=== PATIENT | female | born 1940 | race Caucasian/White ===

== ENCOUNTER 2021-01-23 11:48 | Observation (INO) | payer OTHER ==
--- OUTSIDE RECORDS SUMMARY | 2021-01-23 11:50 | XMS REPORT | Continuity of Care Document ---
:1940 Author Organization [facility] t Address [address] [place] [address] Care Team Providers Name Role Phone Unavailable Unavailable Unavailable Payers Payer Name Policy Type Policy Number Effective Date Expiration Date S ource Problems This patient has no known problems. Allergies, Adverse Reactions, Alerts Allergy Allergy Status Severity Reaction(s) Onset Inactive Treating Comm ents Source Name Type Date Date Clinician metformi DA Active MO 2018-0 [facility] [place] [facility] DA Active SV 0 [facility] [place] [facility] adhesive DA Active MO 2017-0 [facility] tape 5- [place] [facility] metformi DA Active SV 2017-0 [facility] [place] [facility] Medications This patient has no known medications. Procedures This patient has no known procedures. Results Test Description Test Time Test Comments Results Result Comments Source GLUBED 2018-12-26 11:39:00 Test Item Value Reference Range Interpretation Comme nts GLUBED (test code = GLUBED) 85 mg/dL 60-125 N [id number] 08:57:00 Test Item Value Reference Range Interpretation Comments GLUBED (test code = GLUBED) 104 mg/dL 60-125 N
[2021-01-23 13:43] LABS: Protime INR 1.03
[2021-01-23 13:47] LABS: Absolute Lymphocytes (CBC) 1.6 K/uL (0.7-4.9); Basophils % 0.7 % (0-1.3); Hematocrit 37.3 % (36.0-45.0); Lymphocytes % 21.9 % (15.3-44.8); MPV 8.5 fL (7.6-11.3); RBC Red Blood Cell Count 3.97 M/uL (3.86-4.86)
[2021-01-23 14:00] LABS: ALT/SGPT 36 U/L (12-78); AST/SGOT 30 U/L (15-37); Albumin 3.1 g/dL (3.4-5.0); Alkaline Phosphatase 159 U/L (45-117); BUN Blood Urea Nitrogen 15 mg/dL (7-18); Bicarbonate 31 mmol/L (21-32); Bilirubin Direct 0.1 mg/dL (0-0.2); Bilirubin Total 0.3 mg/dL (0.2-1.0); Glucose Level 127 mg/dL (74-106); Magnesium 2.1 mg/dL (1.8-2.4); NT PRO-BNP 1679 pg/mL (<450); Potassium 3.8 mmol/L (3.5-5.1); Protein, Total 7.1 g/dL (6.4-8.2); Sodium Level 142 mmol/L (136-145); Troponin (Emerg Dept Use Only) < 0.02 ng/mL (0.0-0.045)
--- NOTE | 2021-01-23 14:23 | RAD REPORT ---
EXAM DESCRIPTION: RAD - Chest Single View - 01/23/2021 2:10 pm CLINICAL HISTORY: PALPITATIONS COMPARISON: No comparisons FINDINGS: No evidence of edema or pneumonia. The heart size is within normal limits.No acute osseous abnormality. No significant pleural effusions or pneumothorax. Pacemaker. IMPRESSION: No acute cardiopulmonary disease.
--- NOTE | 2021-01-23 18:55 | EDPHYS ---
Physician Documentation [facility] Name: Inna Garnica Age: 80 yrs Sex: Female : 1940 Arrival Date: 01/23/2021 Time: 11:52 Bed 17 Private MD: ED Physician Henrry Varghese HPI: 01/23 18:32 This 80 yrs old Female presents to ER via Ambulatory with complaints of kdr Abnormal EKG. 18:32 Patient had been over getting a blood draw earlier today when it was noted that she had kdr a fast heart rate. She was not having any symptoms other than mild fatigue over the last few days.. Onset: The symptoms/episode began/occurred at an unknown time. Severity of symptoms: At their worst the symptoms were very mild in the emergency department the symptoms are unchanged. The patient has not experienced similar symptoms in the past. The patient has not recently seen a physician. Historical: - Allergies: 13:16 PENICILLINS; ss 13:16 metformin; ss - PMHx: 13:16 Diabetes mellitus; ss 13:17 HTN; knee replacement; ss 13:21 Cellulitis; pacemake; ss - PSHx: 13:17 Total abdominal hysterectomy; Appendectomy; Operative procedure on knee; ss - Immunization history:: Client reports having NOT received the Covid vaccine. Last tetanus immunization: unknown, Pneumococcal vaccine is not up to date, patient has never been vaccinated, Flu vaccine is not up to date. - Social history:: Smoking status: Patient reports the use of cigarette tobacco products, smokes one pack cigarettes per day. ROS: 18:32 Constitutional: Negative for fever, chills, and weight loss, Eyes: Negative for injury, kdr pain, redness, and discharge, ENT: Negative for injury, pain, and discharge, Neck: Negative for injury, pain, and swelling, Respiratory: Negative for shortness of breath, cough, wheezing, and pleuritic chest pain, Abdomen/GI: Negative for abdominal pain, nausea, vomiting, diarrhea, and constipation, Back: Negative for injury and pain, : Negative for injury, bleeding, discharge, and swelling, MS/Extremity: Negative for injury and deformity, Skin: Negative for injury, rash, and discoloration, Neuro: Negative for headache, weakness, numbness, tingling, and seizure activity. Psych: Negative for depression, anxiety, suicide ideation, homicidal ideation, and hallucinations, Allergy/Immunology: Negative for hives, rash, and allergies, Endocrine: Negative for neck swelling, polydipsia, polyuria, polyphagia, and marked weight changes, Hematologic/Lymphatic: Negative for swollen nodes, abnormal bleeding, and unusual bruising. 18:32 Cardiovascular: Positive for palpitations, Negative for chest pain, edema, orthopnea, paroxysmal nocturnal dyspnea. Exam: 18:32 Constitutional: This is a well developed, well nourished patient who is awake, alert, kdr and in no acute distress. Head/Face: Normocephalic, atraumatic. Eyes: Pupils equal round and reactive to light, extra-ocular motions intact. Lids and lashes normal. Conjunctiva and sclera are non-icteric and not injected. Cornea within normal limits. Periorbital areas with no swelling, redness, or edema. Neck: Trachea midline, no thyromegaly or masses palpated, and no cervical lymphadenopathy. Supple, full range of motion without nuchal rigidity, or vertebral point tenderness. No Meningismus. Chest/axilla: Normal chest wall appearance and motion. Nontender with no deformity. No lesions are appreciated. Respiratory: Lungs have equal breath sounds bilaterally, clear to auscultation and percussion. No rales, rhonchi or wheezes noted. No increased work of breathing, no retractions or nasal flaring. Abdomen/GI: Soft, non-tender, with normal bowel sounds. No distension or tympany. No guarding or rebound. No evidence of tenderness throughout. Back: No spinal tenderness. No costovertebral tenderness. Full range of motion. Skin: Warm, dry with normal turgor. Normal color with no rashes, no lesions, and no evidence of cellulitis. MS/ Extremity: Pulses equal, no cyanosis. Neurovascular intact. Full, normal range of motion. Neuro: Awake and alert, GCS 15, oriented to person, place, time, and situation. Cranial nerves II-XII grossly intact. Motor strength 5/5 in all extremities. Sensory grossly intact. Cerebellar exam normal. Normal gait. Psych: Awake, alert, with orientation to person, place and time. Behavior, mood, and affect are within normal limits. 18:32 ECG was reviewed by the Attending Physician. Vital Signs: 13:12 BP 149 / 96; Pulse 148; Resp 16; Temp 97.5; Pulse Ox 100% on R/A; Weight 80.74 kg; ss Height 0 ft. 1 in. (3 cm); Pain 0/10; 19:00 BP 154 / 93; Pulse 106; Resp 19; Pulse Ox 98% on R/A; Pain 0/10; ap3 20:00 BP 123 / 89; Pulse 96; Resp 24; Temp 98(O); Pulse Ox 96% on R/A; Pain 0/10; fu 21:00 BP 129 / 78; Pulse 86; Resp 24; Pulse Ox 95% on R/A; Pain 0/10; fu 13:12 Body Mass Index 45866.49 (80.74 kg, 3 cm) ss MDM: 18:32 Data reviewed: vital signs, nurses notes, lab test result(s), EKG, radiologic studies. kdr Counseling: I had a detailed discussion with the patient and/or guardian regarding: the historical points, exam findings, and any diagnostic results supporting the discharge/admit diagnosis, lab results, radiology results. 18:54 Patient medically screened. kdr 01/23 13:25 Order name: Basic Metabolic Panel; Complete Time: 18:44 kdr 01/23 13:25 Order name: CBC with Diff; Complete Time: 18:44 kdr 01/23 13:25 Order name: LFT's; Complete Time: 18:44 kdr 01/23 13:25 Order name: Magnesium; Complete Time: 18:44 kdr 01/23 13:25 Order name: NT PRO-BNP; Complete Time: 18:44 kdr 01/23 13:25 Order name: PT-INR; Complete Time: 18:44 kdr 01/23 13:25 Order name: Troponin (emerg Dept Use Only); Complete Time: 18:44 kdr 01/23 20:24 Order name: COVID-19 : Document "Date of Symptom Onset" if Symptomatic. tt3 01/23 20:46 Order name: CORONAVIRUS EDNC 01/23 21:44 Order name: SARS-COV-2 RT PCR EDMS 01/23 22:35 Order name: Glucose, Ancillary Testing EDMS 01/24 01:38 Order name: Troponin I EDMS 01/24 04:57 Order name: CBC with Automated Diff EDMS 01/24 05:01 Order name: Troponin I EDMS 01/23 13:25 Order name: XRAY Chest (1 view); Complete Time: 18:44 kdr 01/23 13:25 Order name: EKG; Complete Time: 13:25 kdr 01/23 13:25 Order name: Cardiac monitoring; Complete Time: 18:37 kdr 01/23 19:07 Order name: CONS Physician Consult EDMS 01/24 05:21 Order name: Comprehensive Metabolic Panel EDNC 01/24 05:21 Order name: Phosphorus EDMS 01/24 05:21 Order name: Lipid Profile EDNC 01/24 05:21 Order name: T4 Free EDMS 01/24 05:21 Order name: Magnesium EDNC 01/24 05:21 Order name: Thyroid Stimulating Hormone EDNC 01/24 05:40 Order name: Hemoglobin A1c EDNC 01/24 08:23 Order name: Urinalysis EDNC 01/24 10:11 Order name: Glucose, Ancillary Testing EDMS 01/24 13:16 Order name: Glucose, Ancillary Testing EDMS 01/23 13:25 Order name: EKG - Nurse/Tech; Complete Time: 18:37 kdr 01/23 13:25 Order name: IV Saline Lock; Complete Time: 18:37 kdr 01/23 13:25 Order name: Labs collected and sent; Complete Time: 18:38 kdr 01/23 13:25 Order name: O2 Per Protocol; Complete Time: 18:38 kdr 01/23 13:25 Order name: O2 Sat Monitoring; Complete Time: 18:38 kdr EC:32 Rate is 145 beats/min. Rhythm is regular, A fib with No ectopy. QRS [place] is Normal. AL kdr interval is normal. QRS interval is normal. QT interval is normal. Clinical impression: Atrial Fibrillation. Administered Medications: 18:48 Not Given (Physician Discretion): Xarelto (rivaroxaban) 10 mg PO once ap3 19:09 Drug: Lovenox (enoxaparin) 1 mg/kg Route: Sub-Q; Site: abdomen; ap3 19:48 Follow up: Response: No adverse reaction fu Disposition Summary: 01/23/21 18:54 Hospitalization Ordered Hospitalization Status: Observation kdr Provider: Westley Turner Condition: Fair kdr Problem: new kdr Symptoms: have improved kdr Bed/Room Type: Standard kdr Location: [facility] ER HOLD(01/24/21 13:39) Room Assignment: (01/24/21 13:39) Diagnosis - Unspecified atrial fibrillation - With rapid ventricular response kdr Forms: - Medication Reconciliation Form kdr - SBAR form kdr Signatures: Dispatcher [employer] Sadie Mccabe RN RN Henrry Varghese MD MD kdr Oren Herrera RN RN em Keyla George RN RN Becky Nolasco RN RN ap3 Umadhay, Felix RN Corrections: (The following items were deleted from the chart) 13:22 13:21 Home Meds: cellulitis; [facility] 22: 18:54 Telemetry/MedSurg (observation) kdr em 22: 18:54 kdr em 01/24 12:04 01/23 22:09 [facility] ER HOLD em 01/24 12:04 01/23 22:09 ERHOLD- em 01/24 13:39 12:04 Telemetry/MedSurg (observation) [facility] 13:39 12:04 232 [facility]
--- NOTE | 2021-01-23 18:55 | ER ---
Nurse's Notes [facility] Name: Inna Garnica Age: 80 yrs Sex: Female : 1940 Arrival Date: 01/23/2021 Time: 11:52 Bed 17 Private MD: Diagnosis: Unspecified atrial fibrillation-With rapid ventricular response Presentation: 01/23 13:12 Chief complaint: Patient states: Pt had outpatient EKG at [facility], was called after she got ss home and told she needs to go to an ER because she is having A-fib and rapid heart rate. Pt's biology adjunct instructor is Dr. Jarquin. Pt denies CP or palpitations, c/o minor SOB when walking. Coronavirus screen: Client denies travel out of the [place] in the last 14 days. At this time, the client does not indicate any symptoms associated with coronavirus-19. Ebola Screen: Patient negative for fever greater than or equal to 101.5 degrees Fahrenheit, and additional compatible Ebola Virus Disease symptoms Patient denies exposure to infectious person. Patient denies travel to an Ebola-affected area in the 21 days before illness onset. Initial Sepsis Screen: Does the patient meet any 2 criteria? No. Patient's initial sepsis screen is negative. Does the patient have a suspected source of infection? No. Patient's initial sepsis screen is negative. Risk Assessment: Do you want to hurt yourself or someone else? Patient reports no desire to harm self or others. Onset of symptoms is unknown. 13:12 Method Of Arrival: Ambulatory ss 13:12 Acuity: DARA 2 ss Triage Assessment: 13:17 General: Appears in no apparent distress. comfortable, Behavior is calm, cooperative. ss Pain: Denies pain. Cardiovascular: Reports shortness of breath, Denies chest pain, fatigue, lightheadedness, nausea, palpitations, syncope, Rhythm is atrial fibrillation. Respiratory: Respiratory effort is unlabored, labored, Respiratory pattern is regular, symmetrical. Derm: Skin is intact, Skin is dry, Skin is pink, warm \T\ dry. Skin temperature is warm. 13:20 General: Dr. Varghese in triage to see patient, EKG done in triage, saline lock and labs ss drawn in triage. Historical: - Allergies: 13:16 PENICILLINS; ss 13:16 metformin; ss - PMHx: 13:16 Diabetes mellitus; ss 13:17 HTN; knee replacement; ss 13:21 Cellulitis; pacemake; ss - PSHx: 13:17 Total abdominal hysterectomy; Appendectomy; Operative procedure on knee; ss - Immunization history:: Client reports having NOT received the Covid vaccine. Last tetanus immunization: unknown, Pneumococcal vaccine is not up to date, patient has never been vaccinated, Flu vaccine is not up to date. - Social history:: Smoking status: Patient reports the use of cigarette tobacco products, smokes one pack cigarettes per day. Screenin:59 Abuse screen: Denies threats or abuse. Nutritional screening: No deficits noted. ap3 Tuberculosis screening: No symptoms or risk factors identified. Fall Risk None identified. Assessment: 18:58 General: Appears in no apparent distress. comfortable, Behavior is calm, cooperative, ap3 appropriate for age. Pain: Denies pain. Neuro: Level of Consciousness is awake, alert, obeys commands, Oriented to person, place, time, situation, Appropriate for age Moves all extremities. Gait is steady, Speech is normal. Cardiovascular: Denies chest pain, shortness of breath. Respiratory: Airway is patent Respiratory effort is even, unlabored, Respiratory pattern is regular, symmetrical. GI: No signs and/or symptoms were reported involving the gastrointestinal system. : No signs and/or symptoms were reported regarding the genitourinary system. EENT: No signs and/or symptoms were reported regarding the EENT system. Derm: No signs and/or symptoms reported regarding the dermatologic system. 19:15 Reassessment: No changes from previously documented assessment. Patient and/or family fu updated on plan of care and expected duration. Pain level reassessed. Patient is alert, oriented x 3, equal unlabored respirations, skin warm/dry/pink. 20:00 Reassessment: Patient appears in no apparent distress at this time. No changes from fu previously documented assessment. Patient and/or family updated on plan of care and expected duration. Pain level reassessed. 21:00 Reassessment: Patient appears in no apparent distress at this time. No changes from fu previously documented assessment. Patient and/or family updated on plan of care and expected duration. Pain level reassessed. assisted to bedside commode, Patient voided. Vital Signs: 13:12 BP 149 / 96; Pulse 148; Resp 16; Temp 97.5; Pulse Ox 100% on R/A; Weight 80.74 kg; ss Height 0 ft. 1 in. (3 cm); Pain 0/10; 19:00 BP 154 / 93; Pulse 106; Resp 19; Pulse Ox 98% on R/A; Pain 0/10; ap3 20:00 BP 123 / 89; Pulse 96; Resp 24; Temp 98(O); Pulse Ox 96% on R/A; Pain 0/10; fu 21:00 BP 129 / 78; Pulse 86; Resp 24; Pulse Ox 95% on R/A; Pain 0/10; fu 13:12 Body Mass Index 36664.49 (80.74 kg, 3 cm) ss ED Course: 11:52 Patient arrived in ED. ds1 13:15 Triage completed. ss 13:17 Arm band placed on right wrist. EKG completed in triage. Results shown to MD. 13:18 Henrry Varghese MD is Attending Physician. kdr 14:08 XRAY Chest (1 view) In Process Unspecified. EDMS 18:53 Westley Turner MD is Hospitalizing Provider. kdr 19:00 Patient has correct armband on for positive identification. Placed in gown. Bed in low ap3 position. Call light in reach. Side rails up X 1. quality assurance monitor on. Pulse ox on. NIBP on. Door closed. Noise minimized. 19:06 EKG done, by ED staff, reviewed by Henrry Varghese MD. 3 01/24 12:08 Dustin Arias, RN is Primary Nurse. bp Administered Medications: 01/23 18:48 Not Given (Physician Discretion): Xarelto (rivaroxaban) 10 mg PO once ap3 19:09 Drug: Lovenox (enoxaparin) 1 mg/kg Route: Sub-Q; Site: abdomen; ap3 19:48 Follow up: Response: No adverse reaction fu Outcome: 18:54 Decision to Hospitalize by Provider. kdr 01/24 15:01 Patient left the ED. eb Signatures: Dispatcher [employer] EDMT Henrry Varghese MD MD [facility] Joi Prieto ds1 Keyla George RN RN Tamara Robles 3 Gabino Hay RN RN Dustin Arias RN RN Becky Nolasco RN RN ap3 Carmen Johnson Corrections: (The following items were deleted from the chart) 01/23 13:22 13:21 Home Meds: cellulitis; ss ss
[2021-01-23] MEDS ORDERED: ENOXAPARIN 80 MG/0.8 ML SQ ONE (19:28)
[2021-01-23] MEDS ORDERED: METOPROLOL TAR 25 MG TAB ONE ×2 (19:28→22:49)
--- NOTE | 2021-01-23 20:01 | P.HP ---
Certification for Inpatient Patient admitted to: Observation With expected LOS: <2 Midnights Patient will require the following post-hospital care: None Practitioner: I am a practitioner with admitting privileges, knowledge of patient current condition, hospital course, and medical plan of care. Services: Services provided to patient in accordance with Admission requirements found in Title 42 Section 412.3 of the Code of Federal Regulations Patient History Date of Service: 01/23/21 Primary Care Provider: [place] Reason for admission: new onset afib History of Present Illness: Ms. Garnica is an 80 yo F with HTN, hypothyroidism, HLD who was sent over from [facility] for abnormal EKG demonstrating afib with RVR. She says that on her home monitor she has been tachycardic since 01/14. She denies all symptoms. Has never been diagnosed with afib before. Her buff wheel fabricator is Dr. Tovar. She has had a pacemaker since 2012. She smokes 1 ppd. GFR 42, Glu 127, BNP 1679. CXR wnl. Allergies Penicillins Allergy (Verified 12/10/16 09:24) Hives metformin Adverse Reaction (Verified 12/10/16 09:24) diarrhea Home Medications: Cholecalciferol (Vitamin D3) [Vitamin D3] 2,000 unit PO DAILY 12/10/16 Duloxetine HCl [Cymbalta] 60 mg PO DAILY 12/10/16 Ferrous Fumarate/Vit Bcomp&C [Super B-Complex Caplet] 1 each PO DAILY 12/10/16 Folic Acid 0.8 mg PO DAILY 12/10/16 Furosemide [Lasix*] 40 mg PO DAILY 12/10/16 Insulin Glargine,Hum.rec.anlog [Lantus Solostar] 0 unit SQ BEDTIME 12/10/16 Levothyroxine [Synthroid*] 50 mcg PO [id number] 12/10/16 Liraglutide [Victoza 2-Kartik] 1.8 mg SQ DAILY AFTER SUPPER 12/10/16 Magnesium Oxide [Mag 0X*] 400 mg PO DAILY 12/10/16 Potassium Gluconate [Potassium] 600 mg PO DAILY 12/10/16 lisinopriL [Prinivil*] 20 mg PO DAILY 12/10/16 - Past Medical/Surgical History -: HTN -: HLD -: pacemaker -: knee replacement -: hysterectomy -: appendectomy -: back surgery - Family History Sister -: Cancer Brother -: Diabetes - Social History Smoking Status: Heavy Tobacco smoker (>10 cigarettes/day) Smoking therapy provided: Yes Patient receptive to therapy: No Alcohol use: No CD- Drugs: No Caffeine use: Yes Place of Residence: Home Review of Systems 10-point ROS is otherwise unremarkable Physical Examination - Physical Exam General: Alert, In no apparent distress HEENT: Atraumatic, PERRLA, Mucous membr. moist/pink, EOMI, Sclerae nonicteric Neck: Supple, 2+ carotid pulse no bruit, No LAD, Without JVD or thyroid abnormality Respiratory: Clear to auscultation bilaterally, Normal air movement Cardiovascular: No edema, No gallops, No rubs, No murmurs, Irregular heart rate/rhythm Gastrointestinal: Normal bowel sounds, No tenderness Musculoskeletal: No tenderness Integumentary: No rashes Neurological: Normal speech, Normal strength at 5/5 x4 extr, Normal tone, Normal affect Lymphatics: No axilla or inguinal lymphadenopathy - Studies Laboratory Data (last 24 hrs) 01/23/21 13:28: PT 11.9, INR 1.03 01/23/21 13:28: WBC 7.50, Hgb 12.6, Hct 37.3, Plt Count 193 01/23/21 13:28: Sodium 142, Potassium 3.8, BUN 15, Creatinine 1.23, Glucose 127 H, Magnesium 2.1, Total Bilirubin 0.3, AST 30, ALT 36, Alkaline Phosphatase 159 H Assessment and Plan - Problems (Diagnosis) (1) Afib Current Visit: Yes Status: Acute Qualifiers: Atrial fibrillation type: unspecified Qualified Code(s): I48.91 - Unspecified atrial fibrillation (2) HTN (hypertension) Current Visit: Yes Status: Chronic Qualifiers: Hypertension type: primary hypertension Qualified Code(s): I10 - Essential (primary) hypertension (3) HLD (hyperlipidemia) Current Visit: Yes Status: Chronic Qualifiers: Hyperlipidemia type: unspecified Qualified Code(s): E78.5 - Hyperlipidemia, unspecified (4) Hypothyroid Current Visit: Yes Status: Chronic Qualifiers: Hypothyroidism type: unspecified Qualified Code(s): E03.9 - Hypothyroidism, unspecified - Plan cardiology consulted, on tele, repeat EKG in the AM, trend troponins PO metoprolol BID, IV metoprolol PRN for HR >120 ECHO pending full dose lovenox given in the ED, continue Xarelto daily thyroid panel pending, lipid panel pending reconcile and continue home medications Discharge Plan: Home Plan to discharge in: 24 Hours - Advance Directives Does patient have a Living Will: No Does patient have a Durable POA for Healthcare: No - Code Status/Comfort Care Code Status Assessed: Yes (full code ) Critical Care: No Time Spent Managing Pts Care (In Minutes): 70
[2021-01-23] MEDS ORDERED: METOPROLOL TARTRATE 5 MG/5 ML INJ IV PRN (21:48)
[2021-01-23] MEDS ORDERED: ATORVASTATIN 10 MG TAB PO SCH (21:48)
[2021-01-23] MEDS ORDERED: ACETAMINOPHEN 500 MG TAB PO PRN (21:48)
[2021-01-23] MEDS ORDERED: HYDRALAZINE HCL 20 MG/ML VIAL IV PRN (21:48)
[2021-01-23] MEDS ORDERED: ONDANSETRON 4 MG/2 ML VIAL IV PRN (21:48)
[2021-01-23] MEDS: INSULIN -REGULAR HUMAN 50 UNIT/0.5 ML ML SQ SCH (22:24)
[2021-01-23] MEDS: METOPROLOL TAR 25 MG TAB PO SCH (22:35)
[2021-01-23] MEDS ORDERED: ATORVASTATIN 10 MG TAB ONE (22:51)
[2021-01-23] MEDS: GABAPENTIN 100 MG CAP PO SCH (23:32)
[2021-01-23 23:38] VITALS: BMI 31.5
[2021-01-24 04:43] LABS: Basophils % 0.6 % (0-1.3); Hematocrit 38.6 % (36.0-45.0); Lymphocytes % 29.2 % (15.3-44.8); RBC Red Blood Cell Count 4.12 M/uL (3.86-4.86)
[2021-01-24] MEDS: METOPROLOL TAR 25 MG TAB PO SCH (05:17)
[2021-01-24 05:21] LABS: Albumin 3.2 g/dL (3.4-5.0); Bilirubin Total 0.3 mg/dL (0.2-1.0); Magnesium 2.4 mg/dL (1.8-2.4); Phosphorus 3.2 mg/dL (2.5-4.9); Potassium 4.6 mmol/L (3.5-5.1); Protein, Total 7.2 g/dL (6.4-8.2); Thyroid Stimulating Hormone 2.34 uIU/mL (0.360-3.740)
[2021-01-24] MEDS ORDERED: METOPROLOL TAR 25 MG TAB ONE (05:38)
[2021-01-24] MEDS ORDERED: TIZANIDINE 4 MG TABLET PO PRN (06:22)
[2021-01-24] MEDS: INSULIN -REGULAR HUMAN 50 UNIT/0.5 ML ML SQ SCH ×2 (07:30→11:30)
[2021-01-24 08:01] LABS: Urine Appearance CLEAR (Clear); Urine Bilirubin NEGATIVE (Negative); Urine Blood NEGATIVE (Negative); Urine Color YELLOW (Yellow); Urine Glucose NEGATIVE (Negative); Urine Protein TRACE (Negative); Urine Urobilinogen 0.2 mg/dL (0.2-1.0); Urine pH 7.5 (5.0-7.0)
[2021-01-24 08:23] LABS: Urine Microscopic Reflex NO UMIC
[2021-01-24] MEDS ORDERED: FOLIC ACID 1 MG TABLET PO SCH (09:00)
[2021-01-24] MEDS ORDERED: PRAMIPEXOLE 1 MG TAB PO SCH ×2 (09:00→21:00)
[2021-01-24] MEDS ORDERED: HYDROXYCHLOROQUINE 200MG TAB PO SCH (09:00)
[2021-01-24] MEDS ORDERED: ASPIRIN EC 81 MG TAB PO SCH (09:00)
[2021-01-24] MEDS: GABAPENTIN 100 MG CAP PO SCH ×2 (09:00→14:00)
[2021-01-24] MEDS ORDERED: MAGNESIUM OXIDE 400 MG TAB PO SCH (09:00)
[2021-01-24] MEDS ORDERED: FUROSEMIDE 40 MG TABLET PO SCH ×2 (09:00→21:00)
[2021-01-24] MEDS ORDERED: DULOXETINE 30 MG CAP PO SCH (09:00)
[2021-01-24] MEDS ORDERED: lisinopriL 20 MG TAB PO SCH (09:00)
--- NOTE | 2021-01-24 09:29 | P.DS ---
Admission Date: 01/23/21 Discharge Date: 01/24/21 Primary Care Provider: Lencho Rose NP; Cardiology-Dr. Jarquin Disposition: ROUTINE DISCHARGE Discharge Condition: GOOD Reason for Admission: new onset afib Consultations: CardiologyDr. Dixon Procedures: COVID: Negative Medical problem list: New onset atrial fibrillation with RVR Hypertension Hyperlipidemia Hypothyroidism Diabetes mellitus type 2 insulin-dependent Restless leg syndrome History of pacemaker Tobacco abuse Chronic pain with diabetic neuropathy Chronic diastolic CHF Brief History of Present Illness: 80-year-old female with history of hypertension, hypothyroidism, hyperlipidemia, pacemaker, tobacco abuse presented with abnormal EKG showing A. fib with RVR. Patient reports tachycardia since 8 4. She denies any significant abnormalities. Patient reports no history of atrial fibrillation. Patient was treated in the ER with IV metoprolol with improvement. Patient was admitted for further evaluation. Hospital Course: Patient presented with new onset atrial fibrillation with RVR. Patient was treated in with IV metoprolol. Patient responded well to medication. Patient currently stable on metoprolol oral. Patient also placed on Xarelto due to new diagnosis. Patient seen and evaluated by cardiology. At discharge patient without significant chest pain, shortness of breath. Cardiac enzymes unremarkable. At discharge patient will continue with metoprolol 25 mg 1 pill twice daily and Xarelto 20 mg daily for atrial fibrillation. Recommend follow- up with cardiology in 1 to 2 weeks to follow his hospitalization and continue her care. Education on atrial fibrillation, metoprolol and Xarelto will be provided. Patient with hypertension. Patient remained stable on medication-Lisinopril. New medication includes metoprolol. At discharge patient will continue with her medications including lisinopril 20 mg daily and metoprolol 25 mg one pill twice daily. Recommend to maintain blood pressure less than 130/80. Hold Lisinopril if BP less than 110 sys. Further adjustment can be done by her PCP. Patient with hyperlipidemia. LDL within normal range. At discharge patient will continue with pravastatin 80 mg daily. Patient with diabetes mellitus type 2 insulin-dependent. Hemoglobin A1c 6.3. Overall stable. At discharge she will continue with her current medications including Tresiba 22 units subcu daily and Victoza as directed. Recommend to maintain blood sugar less than 140 fasting and less than 200 meals. Recommend to recheck hemoglobin A1c every 3 to 6 months to monitor progress. Recommend follow-up with PCP to further address. Patient with restless leg syndrome. At discharge patient will continue with Mirapex 0.5 mg daily and 1 mg at bedtime. Patient with hypothyroidism. TSH and free T4 within normal range. At discharge she will continue with levothyroxine 75 mcg daily. Patient with tobacco abuse. Tobacco cessation addressed in detail. Patient also takes Lasix 40 mg daily and 20 mg at night. This is likely for underlying congestive heart failure. Patient will continue with a 1500 cc/day fluid restriction and low-salt diet. Patient also takes potassium supplementation. At discharge recommend to recheck labBMP in 1 week to monitor her progress. Patient with chronic pain and neuropathy. At discharge she will continue with Cymbalta 60 mg daily and gabapentin 100 mg 3 times a day. Patient takes muscle relaxer as needed. Vital Signs/Physical Exam: Temp Pulse Resp BP Pulse Ox 98.3 F 90 24 H 142/87 H 92 01/24/21 04:00 01/24/21 05:17 01/24/21 04:00 01/24/21 05:17 01/24/21 04:00 General: Alert, In no apparent distress, Oriented x3, Cooperative HEENT: Atraumatic Neck: Supple Respiratory: Clear to auscultation bilaterally Cardiovascular: Irregular heart rate/rhythm (Atrial fibrillation, rate controlled) Gastrointestinal: Normal bowel sounds, No tenderness, No masses, No rebound, No guarding Musculoskeletal: No erythema, No tenderness, No warmth Integumentary: No tenderness/swelling Neurological: Normal speech, Normal strength at 5/5 x4 extr, Normal tone, Normal affect Laboratory Data at Discharge: WBC 6.90 K/uL (4.3-10.9) 01/24/21 03:57 Hgb 12.8 g/dL (12.0-15.0) 01/24/21 03:57 Hct 38.6 % (36.0-45.0) 01/24/21 03:57 Plt Count 180 K/uL (152-406) 01/24/21 03:57 PT 11.9 SECONDS (9.5-12.5) 01/23/21 13:28 INR 1.03 01/23/21 13:28 Sodium 141 mmol/L (136-145) 01/24/21 03:57 Potassium 4.6 mmol/L (3.5-5.1) 01/24/21 03:57 BUN 13 mg/dL (7-18) 01/24/21 03:57 Creatinine 0.91 mg/dL (0.55-1.3) 01/24/21 03:57 Glucose 71 mg/dL (74-106) L 01/24/21 03:57 Phosphorus 3.2 mg/dL (2.5-4.9) 01/24/21 03:57 Magnesium 2.4 mg/dL (1.8-2.4) 01/24/21 03:57 Total Bilirubin 0.3 mg/dL (0.2-1.0) 01/24/21 03:57 AST 28 U/L (15-37) 01/24/21 03:57 ALT 34 U/L (12-78) 01/24/21 03:57 Alkaline Phosphatase 157 U/L (45-117) H 01/24/21 03:57 Troponin I < 0.02 ng/mL (0.0-0.045) 01/24/21 03:57 Triglycerides 122 mg/dL (<150) 01/24/21 03:57 Cholesterol 151 mg/dL (<200) 01/24/21 03:57 HDL Cholesterol 85 mg/dL (40-60) H 01/24/21 03:57 Cholesterol/HDL Ratio 1.78 01/24/21 03:57 Home Medications: Cholecalciferol (Vitamin D3) [Vitamin D3] 2,000 unit PO SEECOM 12/10/16 Duloxetine HCl [Cymbalta] 60 mg PO DAILY 12/10/16 Folic Acid 0.8 mg PO DAILY 12/10/16 Furosemide [Lasix*] 40 mg PO DAILY 12/10/16 Levothyroxine [Synthroid*] 75 mcg PO [id number] 12/10/16 Liraglutide [Victoza 2-Kartik] 1.8 mg SQ DAILY 12/10/16 Magnesium Oxide [Mag 0X*] 250 mg PO DAILY 12/10/16 Potassium Gluconate [Potassium] 595 mg PO DAILY 12/10/16 lisinopriL [Prinivil*] 20 mg PO DAILY 12/10/16 Cyclosporine [Restasis] 1 drop EACH EYE BID 01/23/21 Furosemide [Lasix*] 20 mg PO SEECOM 01/23/21 Gabapentin 100 mg PO TID 01/23/21 Hydroxychloroquine [Plaquenil*] 2 tab PO DAILY 01/23/21 Insulin Degludec [Tresiba] 22 unit SQ DAILY 01/23/21 Pramipexole [Mirapex*] 0.5 mg PO DAILY 01/23/21 Pramipexole [Mirapex*] 1 mg PO BEDTIME 01/23/21 Pravastatin Sodium 80 mg PO BEDTIME 01/23/21 Tizanidine HCl 2 mg PO BID 01/23/21 Vit C/Yunier AC/Lut/Copper/Znox [Preservision Lutein Softgel] 1 each PO BID 01/23/21 Metoprolol Tartrate [Lopressor*] 25 mg PO BID 6AM 6PM #60 tab 01/24/21 Rivaroxaban [Xarelto] 20 mg PO DAILY #30 tablet 01/24/21 New Medications: Metoprolol Tartrate [Lopressor*] 25 mg PO BID 6AM 6PM #60 tab Rivaroxaban [Xarelto] 20 mg PO DAILY #30 tablet Physician Discharge Instructions: Patient presented with new onset atrial fibrillation with RVR. Patient was treated in with IV metoprolol. Patient responded well to medication. Patient currently stable on metoprolol oral. Patient also placed on Xarelto due to new diagnosis. Patient seen and evaluated by cardiology. At discharge patient without significant chest pain, shortness of breath. Cardiac enzymes unremarkable. At discharge patient will continue with metoprolol 25 mg 1 pill twice daily and Xarelto 20 mg daily for atrial fibrillation. Recommend follow- up with cardiology in 1 to 2 weeks to follow his hospitalization and continue her care. Education on atrial fibrillation, metoprolol and Xarelto will be provided. Patient with hypertension. Patient remained stable on medication-Lisinopril. New medication includes metoprolol. At discharge patient will continue with her medications including lisinopril 20 mg daily and metoprolol 25 mg one pill twice daily. Recommend to maintain blood pressure less than 130/80. Hold Lisinopril if BP less than 110 sys. Further adjustment can be done by her PCP. Patient with hyperlipidemia. LDL within normal range. At discharge patient will continue with pravastatin 80 mg daily. Patient with diabetes mellitus type 2 insulin-dependent. Hemoglobin A1c 6.3. Overall stable. At discharge she will continue with her current medications including Tresiba 22 units subcu daily and Victoza as directed. Recommend to maintain blood sugar less than 140 fasting and less than 200 meals. Recommend to recheck hemoglobin A1c every 3 to 6 months to monitor progress. Recommend follow-up with PCP to further address. Patient with restless leg syndrome. At discharge patient will continue with Mirapex 0.5 mg daily and 1 mg at bedtime. Patient with hypothyroidism. TSH and free T4 within normal range. At discharge she will continue with levothyroxine 75 mcg daily. Patient with tobacco abuse. Tobacco cessation addressed in detail. Patient also takes Lasix 40 mg daily and 20 mg at night. This is likely for underlying congestive heart failure. Patient will continue with a 1500 cc/day fluid restriction and low-salt diet. Patient also takes potassium supplementation. At discharge recommend to recheck labBMP in 1 week to monitor her progress. Patient with chronic pain and neuropathy. At discharge she will continue with Cymbalta 60 mg daily and gabapentin 100 mg 3 times a day. Patient takes muscle relaxer as needed. Diet: ADA Activity: Ad peggy Followup: TSERING CAGLE [Primary Care Provider] - Time spent managing pt's care (in minutes): 55
[2021-01-24] MEDS ORDERED: FUROSEMIDE 40 MG TABLET ONE (11:27)
[2021-01-24] MEDS ORDERED: FOLIC ACID 1 MG TABLET ONE (11:27)
[2021-01-24] MEDS ORDERED: MAGNESIUM OXIDE 400 MG TAB ONE (11:28)
[2021-01-24] MEDS ORDERED: lisinopriL 20 MG TAB ONE (11:28)
[2021-01-24] MEDS ORDERED: ASPIRIN EC 81 MG TAB PO ONE (11:28)
[2021-01-24 11:41] VITALS: O2SAT 96
--- NOTE | 2021-01-24 14:45 | CON ---
Date of Consultation: 01/24/2021 Reason For Consultation: New-onset atrial fibrillation. History Of Present Illness: An 80-year-old female, history of hypertension, hypothyroidism, dyslipid emia, presented after a primary care physician referred her to come to the hospital because of fast h eartbeat. She did not have any symptoms. No chest pain or shortness of breath. Arrived into the em ergency room with atrial fibrillation with RVR. Heart rate in the 150s. This was slowed down with I V metoprolol and she is below 100 now and no symptoms. She denies having any cardiac history except pacemaker implantation for symptomatic bradycardia in the past. Past Medical History: As outlined above in the HPI. Medications: Refer to reconciliation sheet for detailed list. Allergies: PENICILLIN AND METFORMIN. Family History: No premature coronary artery disease or cancer. Social History: She smokes about 10 cigarettes per day. Does not drink or use any drugs. Review of Systems: All systems reviewed and negative except as mentioned in HPI. Physical Examination: Vital Signs: Temperature is 98.3, pulse is 90-95, breathing at 18, blood pressure is 142/87, saturat ing 96% on room air. General: Pleasant elderly female, in no apparent distress. Head and Neck: Pupils are equal and reactive to light. Intact eye movements. No JVD. No cervical lymphadenopathy. Neck: Supple. Thyroid is not enlarged. Lungs: Clear to auscultation bilaterally. No rhonchi, rales, or crackles. No accessory muscle use. Heart: Irregularly irregular. No extra sounds. Abdomen: Soft, nontender. Bowel sounds positive. No organomegaly. No masses or hernia. No rigidi ty or rebound. Extremities: No clubbing, cyanosis. Intact pulses. Skin: No rash. Neurologic: Alert, awake, oriented x3. No acute focal deficits appreciated. Investigations: Troponins x2 are negative. TSH is 2.3. Creatinine 0.9. Hemoglobin is 12.8, platel et count is 180. Assessment And Recommendations: New-onset atrial fibrillation with rapid ventricular response. No o ther symptoms. No shortness of breath. No hypoxia. No signs of heart failure. No chest pain. Hea rt rate is controlled now. Recommend to continue metoprolol and anticoagulation with Xarelto. The p atient has significant skin bruising all over her body that she has always had. She will probably be nefit from left atrial appendage closure in the near future to replace anticoagulants. From cardiolo gy standpoint, the patient is clinically stable. Thank you for the consult. /MARILYN Voice ID: [id number] Report ID: [id number]
[2021-01-24 15:15] VITALS: BP 129/93; TEMP 98.6
[2021-01-24] MEDS ORDERED: FUROSEMIDE 20 MG TABLET PO SCH (17:00)
[2021-01-24] MEDS ORDERED: RIVAROXABAN 10 MG TABLET PO SCH ×2 (17:00)
[2021-01-25] MEDS ORDERED: LEVOTHYROXINE SOD 0.075 MG TAB PO SCH (06:00)
[2021-01-26] MEDS ORDERED: VITAMIN D 1000 UNIT TAB PO SCH (09:00)
== END 2021-01-24 14:30 | disposition home or self-care (01) ==
LOC: ER 11:48 → ERHOLD 19:20
PROVIDERS: ADMIT Family Medicine; ATTEND Family Medicine
DX: I48.91 Unspecified atrial fibrillation (principal); I11.0 Hypertensive heart disease with heart failure; I50.32 Chronic diastolic (congestive) heart failure; E78.5 Hyperlipidemia, unspecified; E03.9 Hypothyroidism, unspecified; E11.40 Type 2 diabetes mellitus with diabetic neuropathy, unspecified; G89.29 Other chronic pain; G25.81 Restless legs syndrome; F17.210 Nicotine dependence, cigarettes, uncomplicated; Z71.6 Tobacco abuse counseling; Z20.822 Contact with and (suspected) exposure to COVID-19; Z95.0 Presence of cardiac pacemaker; Z79.4 Long term (current) use of insulin; Z88.0 Allergy status to penicillin; Z88.8 Allergy status to other drugs, medicaments and biological substances; Z90.710 Acquired absence of both cervix and uterus; Z96.659 Presence of unspecified artificial knee joint; Z83.3 Family history of diabetes mellitus; Z80.9 Family history of malignant neoplasm, unspecified
CPT/HCPCS: 93005 ×5; 85025 ×2; 80048; 36415; 83735 ×2; 84100; 85610; 80061; 82947 ×3; 80076; 84443; 81003; 83036; 84484 ×3; 84439; 80053; 83880; 71045; 94760; 96372; 99284; U0003; G0378 ×3

== ENCOUNTER 2021-02-20 10:09 | Observation (INO) | payer OTHER ==
--- OUTSIDE RECORDS SUMMARY | 2021-02-20 10:12 | XMS REPORT | Continuity of Care Document ---
:1940 Author Organization [facility] t Address [address] [place] [address] Care Team Providers Name Role Phone Unavailable Unavailable Unavailable Payers Payer Name Policy Type Policy Number Effective Date Expiration Date S ource Problems This patient has no known problems. Allergies, Adverse Reactions, Alerts Allergy Allergy Status Severity Reaction(s) Onset Inactive Treating Comm ents Source Name Type Date Date Clinician metformi DA Active MO 0 [facility] [place] [facility] DA Active SV 0 [facility] [place] [facility] adhesive DA Active MO 2017-0 [facility] [place] [facility] metformi DA Active SV 2017-0 [facility] [place] [facility] Medications This patient has no known medications. Procedures This patient has no known procedures. Results Test Description Test Time Test Comments Results Result Comments Source GLUBED 2018-12-26 11:39:00 Test Item Value Reference Range Interpretation Comme nts GLUBED (test code = GLUBED) 85 mg/dL 60-125 N [id number] 08:57:00 Test Item Value Reference Range Interpretation Comments GLUBED (test code = GLUBED) 104 mg/dL 60-125 N
[2021-02-20 11:16] LABS: Protime INR 1.46
[2021-02-20 11:17] LABS: Absolute Lymphocytes (CBC) 1.6 K/uL (0.7-4.9); Basophils % 0.9 % (0-1.3); Hematocrit 35.2 % (36.0-45.0); Lymphocytes % 20.9 % (15.3-44.8); RBC Red Blood Cell Count 3.82 M/uL (3.86-4.86)
[2021-02-20 11:19] LABS: ALT/SGPT 58 U/L (12-78); AST/SGOT 42 U/L (15-37); Alkaline Phosphatase 211 U/L (45-117); BUN Blood Urea Nitrogen 16 mg/dL (7-18); Bicarbonate 33 mmol/L (21-32); Bilirubin Direct 0.2 mg/dL (0-0.2); Bilirubin Total 0.5 mg/dL (0.2-1.0); Glucose Level 72 mg/dL (74-106); NT PRO-BNP 2609 pg/mL (<450); Potassium 3.5 mmol/L (3.5-5.1); Protein, Total 6.8 g/dL (6.4-8.2); Sodium Level 143 mmol/L (136-145); Troponin (Emerg Dept Use Only) < 0.02 ng/mL (0.0-0.045)
--- NOTE | 2021-02-20 12:26 | ER ---
Nurse's Notes [facility] Name: Inna Garnica Age: 80 yrs Sex: Female : 1940 Arrival Date: 02/20/2021 Time: 10:20 Bed 18 Private MD: Diagnosis: Pleural effusion, not elsewhere classified;Unspecified combined systolic (congestive) and diastolic (congestive) heart failure;Dyspnea, unspecified Presentation: 02/20 10:22 Chief complaint: Patient states: went to see Jordana Rose on Tuesday , had labs iw drawn and CXR. this morning she was told to come to ER for possible CHF, pt normally takes Lasix , was admitted here last month for new onset A fib , pt denies any chest pain or SOB or palpitations, states she has SOB on exertion sine last week. Coronavirus screen: Client presents with at least one sign or symptom that may indicate coronavirus-19. Ebola Screen: Patient negative for fever greater than or equal to 101.5 degrees Fahrenheit, and additional compatible Ebola Virus Disease symptoms Patient denies exposure to infectious person. Patient denies travel to an Ebola-affected area in the 21 days before illness onset. No symptoms or risks identified at this time. Initial Sepsis Screen: Does the patient meet any 2 criteria? No. Patient's initial sepsis screen is negative. Does the patient have a suspected source of infection? No. Patient's initial sepsis screen is negative. Risk Assessment: Do you want to hurt yourself or someone else? Patient reports no desire to harm self or others. Onset of symptoms was February 13, 2021. 10:22 Method Of Arrival: Wheelchair iw 10:22 Acuity: DARA 3 iw Historical: - Allergies: 10:25 PENICILLINS; iw 10:25 metformin; iw - Home Meds: 10:25 vitamin B complex oral daily [Active]; duloxetine 60 mg oral cpDR 1 cap once daily iw [Active]; folic acid 800 mcg Oral tab 1 tab once daily [Active]; gabapentin 300 mg oral cap 1 cap 3 times per day [Active]; hydroxychloroquine 200 mg oral tab 2 tabs once daily [Active]; levothyroxine 75 mcg cap 1 cap once daily [Active]; lisinopril 20 mg Oral tab 1 tab once daily [Active]; magnesium oxide 250 mg magnesium Oral tab daily [Active]; Novolog Sub-Q [Active]; pramipexole 0.75 mg oral tab nightly [Active]; pravastatin 80 mg oral tab 1 tab once daily [Active]; tizanidine 2 mg oral cap 1 cap twice a day [Active]; Tresiba FlexTouch U-200 200 unit/mL (3 mL) subcutaneous inpn [Active]; Victoza 3-Kartik 0.6 mg/0.1 mL (18 mg/3 mL) subcutaneous pnij once daily [Active]; Xarelto 20 mg oral tab 1 tab once daily [Active]; metoprolol tartrate 25 mg Oral tab 1 tab 2 times per day [Active]; - PMHx: 10:25 Cellulitis; diabetes mellitus; HTN; knee replacement; iw - PSHx: 10:25 Appendectomy; Operative procedure on knee; Total abdominal hysterectomy; pacemaker; iw - Immunization history:: Client reports having NOT received the Covid vaccine. - Social history:: Smoking status: Patient reports the use of cigarette tobacco products, smokes one pack cigarettes per day. Screenin:34 Abuse screen: Denies threats or abuse. Nutritional screening: No deficits noted. ll1 Tuberculosis screening: No symptoms or risk factors identified. Vital Signs: 10:22 BP 133 / 84; Pulse 86; Resp 18; Temp 98.1; Pulse Ox 96% on R/A; Weight 85.73 kg; iw 21:23 BP 142 / 90; Pulse 105; Resp 20; Pulse Ox 96% ; em ED Course: 10:20 Patient arrived in ED. ds1 10:25 Triage completed. iw 10:30 Arm band placed on. iw 11:32 Blas Madera PA is PHCP. cp 11:32 Henrry Varghese MD is Attending Physician. cp 11:34 Yonas Chavira, DAMEON is Primary Nurse. ll1 11:34 Patient placed in an exam room, on a stretcher. ll1 12:25 Nishant Booth is Hospitalizing Provider. cp Administered Medications: 15:24 Not Given (Patient Refused): UltRAM (traMADol) 25 mg PO once; RASS on ADMIN: Combtv4, ll1 Very Agttd3, Agttd2, Rstlss1, AlertClm0, Drwsy-1, Lt Sdtn-2, Mod Sdtn-3, Dp Sdtn-4, UnArsble-5 15:55 Drug: Gabapentin 100 mg Route: PO; ll1 15:55 Drug: Mirapex (pramipexole) 2 mg Route: PO; ll1 Outcome: 12:26 Decision to Hospitalize by Provider. cp 22:40 Admitted to Tele accompanied by nurse, via wheelchair, room 216, with chart, Report em called to receiving nurse 22:40 Condition: stable 22:40 Instructed on the need for admit. 22:42 Patient left the ED. em Signatures: Oren Herrera RN RN em Joi Prieto ds1 Jenae Fuchs RN RN iw Blas Madera PA PA cp Yonas Chavira RN RN ll1 Corrections: (The following items were deleted from the chart) 10:30 10:25 PMHx: pacemake; iw iw
--- NOTE | 2021-02-20 12:27 | EDPHYS ---
Physician Documentation [facility] Name: Inna Garnica Age: 80 yrs Sex: Female : 1940 Arrival Date: 02/20/2021 Time: 10:20 Bed 18 Private MD: ED Physician Henrry Varghese HPI: 02/20 10:35 This 80 yrs old Female presents to ER via Wheelchair with complaints of cp Irregular Pulse, Sent Per Jordana ORTIZ. 10:35 The patient has shortness of breath with light activity. cp 10:35 Onset: The symptoms/episode began/occurred last week. Duration: The symptoms are cp continuous, and are steadily getting worse. Associated signs and symptoms: Pertinent positives: edema, Pertinent negatives: chest pain, productive cough, fever. 10:35 Severity of symptoms: in the emergency department the symptoms are unchanged despite cp home interventions. Patient sent to ED by family physician for increasing exertional shortness of breath and swelling of legs since last week. Historical: - Allergies: 10:25 PENICILLINS; iw 10:25 metformin; iw - Home Meds: 10:25 vitamin B complex oral daily [Active]; duloxetine 60 mg oral cpDR 1 cap once daily iw [Active]; folic acid 800 mcg Oral tab 1 tab once daily [Active]; gabapentin 300 mg oral cap 1 cap 3 times per day [Active]; hydroxychloroquine 200 mg oral tab 2 tabs once daily [Active]; levothyroxine 75 mcg cap 1 cap once daily [Active]; lisinopril 20 mg Oral tab 1 tab once daily [Active]; magnesium oxide 250 mg magnesium Oral tab daily [Active]; Novolog Sub-Q [Active]; pramipexole 0.75 mg oral tab nightly [Active]; pravastatin 80 mg oral tab 1 tab once daily [Active]; tizanidine 2 mg oral cap 1 cap twice a day [Active]; Tresiba FlexTouch U-200 200 unit/mL (3 mL) subcutaneous inpn [Active]; Victoza 3-Kartik 0.6 mg/0.1 mL (18 mg/3 mL) subcutaneous pnij once daily [Active]; Xarelto 20 mg oral tab 1 tab once daily [Active]; metoprolol tartrate 25 mg Oral tab 1 tab 2 times per day [Active]; - PMHx: 10:25 Cellulitis; diabetes mellitus; HTN; knee replacement; iw - PSHx: 10:25 Appendectomy; Operative procedure on knee; Total abdominal hysterectomy; pacemaker; iw - Immunization history:: Client reports having NOT received the Covid vaccine. - Social history:: Smoking status: Patient reports the use of cigarette tobacco products, smokes one pack cigarettes per day. ROS: 10:40 Constitutional: Negative for body aches, chills, fever, poor PO intake. cp 10:40 Eyes: Negative for injury, pain, redness, and discharge. cp 10:40 ENT: Negative for ear pain, sore throat, difficulty swallowing, difficulty handling secretions. 10:40 Cardiovascular: Positive for edema, Negative for chest pain, palpitations. 10:40 Respiratory: Positive for shortness of breath, on exertion. Negative for cough, wheezing. 10:40 Abdomen/GI: Negative for abdominal pain, nausea, vomiting, and diarrhea, black/tarry stool, rectal bleeding. 10:40 Skin: Negative for rash. 10:40 Neuro: Negative for altered mental status, headache, syncope, weakness. 10:40 All other systems are negative. Exam: 10:45 Constitutional: The patient appears in no acute distress, alert, awake, cp non-diaphoretic, non-toxic, well developed, well nourished. 10:45 Head/Face: Normocephalic, atraumatic. cp 10:45 Eyes: Periorbital structures: appear normal, Conjunctiva: normal, no exudate, no injection, Sclera: no appreciated abnormality, Lids and lashes: appear normal, bilaterally. 10:45 ENT: External ear(s): are unremarkable, Nose: is normal, Posterior pharynx: Airway: no evidence of obstruction, patent. 10:45 Neck: ROM/movement: is normal, is supple, without pain, no range of motions limitations. 10:45 Chest/axilla: Inspection: normal, Palpation: is normal, no crepitus, no tenderness. 10:45 Cardiovascular: Rate: normal, Rhythm: irregular, Edema: ankle edema, that is moderate, JVD: is not appreciated. 10:45 Respiratory: the patient does not display signs of respiratory distress, Respirations: normal, no use of accessory muscles, no retractions, labored breathing, is not present, Breath sounds: decreased breath sounds, that are mild, diffuse, stridor, is not appreciated, wheezing: is not appreciated. 10:45 Abdomen/GI: Inspection: abdomen appears normal, Palpation: abdomen is soft and non-tender, in all quadrants. 10:45 Back: pain, is absent, ROM is normal. 10:45 Neuro: Orientation: to person, place \\T\\ time. Mentation: is normal. 11:05 ECG was reviewed by the Attending Physician. cp Vital Signs: 10:22 BP 133 / 84; Pulse 86; Resp 18; Temp 98.1; Pulse Ox 96% on R/A; Weight 85.73 kg; iw 21:23 BP 142 / 90; Pulse 105; Resp 20; Pulse Ox 96% ; em MDM: 11:00 Differential diagnosis: CHF exacerbation, Chronic Obstructive Pulmonary Disease cp pneumonia, Pneumothorax pulmonary edema, Pulmonary Embolism Unstable Angina. 11:43 Patient medically screened. cp 12:30 Data reviewed: vital signs, nurses notes, lab test result(s), EKG, radiologic studies, cp plain films. 12:30 Test interpretation: by ED physician or midlevel provider: ECG, plain radiologic cp studies. Counseling: I had a detailed discussion with the patient and/or guardian regarding: the historical points, exam findings, and any diagnostic results supporting the discharge/admit diagnosis, lab results, radiology results, the need for further work-up and treatment in the hospital. Physician consultation: Arben OCHOA was contacted at 12:25, regarding admission, to the telemetry unit. patient's condition. 02/20 10:30 Order name: Basic Metabolic Panel; Complete Time: 11:32 02/20 11:44 Interpretation: Normal except: CL 108; CO2 33; GLUC 72; GFR 66. cp 02/20 10:30 Order name: CBC with Diff; Complete Time: 11:44 02/20 11:44 Interpretation: Normal except: RBC 3.82; HGB 11.4; HCT 35.2. cp 02/20 10:30 Order name: LFT's; Complete Time: 11:32 02/20 11:55 Interpretation: Normal except: AST 42; ALK 211; ALB 3.0; GLOB 3.8; A/G 0.8. cp 02/20 10:30 Order name: Magnesium; Complete Time: 11:32 iw 02/20 10:30 Order name: NT PRO-BNP; Complete Time: 11:32 02/20 11:44 Interpretation: Abnormal: NT PRO-BNP 2609. 02/20 10:30 Order name: PT-INR; Complete Time: 11:54 02/20 11:55 Interpretation: Abnormal: PT 16.8. 02/20 10:30 Order name: Troponin (emerg Dept Use Only); Complete Time: 11:32 02/20 12:22 Order name: COVID-19 : Document "Date of Symptom Onset" if Symptomatic. 02/20 16:30 Order name: SARS-COV-2 RT PCR [facility] 02/20 19:08 Order name: Troponin I [facility] 02/20 19:13 Order name: T4 Free [facility] 02/20 19:13 Order name: Thyroid Stimulating Hormone [facility] 02/20 22:34 Order name: Troponin I [facility] 02/20 10:30 Order name: EKG; Complete Time: 10:31 02/20 10:30 Order name: Cardiac monitoring; Complete Time: 11:34 02/20 10:30 Order name: EKG - Nurse/Tech; Complete Time: 11:34 02/20 10:30 Order name: IV Saline Lock; Complete Time: 11:34 02/20 10:30 Order name: Labs collected and sent; Complete Time: 11:34 02/20 10:30 Order name: O2 Per Protocol; Complete Time: 11:34 02/20 10:30 Order name: O2 Sat Monitoring; Complete Time: 11:34 02/20 13:42 Order name: Echo with Doppler EDMS EC:05 Rate is 86 beats/min. Rhythm is regular. QRS interval is normal. QT interval is normal. cp Interpreted by me. Reviewed by me. Administered Medications: 15:24 Not Given (Patient Refused): UltRAM (traMADol) 25 mg PO once; RASS on ADMIN: Combtv4, ll1 Very Agttd3, Agttd2, Rstlss1, AlertClm0, Drwsy-1, Lt Sdtn-2, Mod Sdtn-3, Dp Sdtn-4, UnArsble-5 15:55 Drug: Gabapentin 100 mg Route: PO; ll1 15:55 Drug: Mirapex (pramipexole) 2 mg Route: PO; ll1 Disposition: 02/21 20:18 Co-signature as Attending Physician, Henrry Varghese MD I agree with the assessment and kdr plan of care. Disposition Summary: 02/20/21 12:26 Hospitalization Ordered Hospitalization Status: Inpatient Admission cp Provider: Nishant Booth cp Condition: Stable cp Problem: new cp Symptoms: are unchanged cp Bed/Room Type: Standard cp Location: Telemetry/MedSurg (Inpatient)(02/20/21 20:57) Room Assignment: 216(02/20/21 20:57) Diagnosis - Pleural effusion, not elsewhere classified cp - Unspecified combined systolic (congestive) and diastolic (congestive) heart failure cp - Dyspnea, unspecified cp Forms: - Medication Reconciliation Form cp - SBAR form cp Signatures: Dispatcher [employer] EDMS Sahra Vu RN RN mw Rittger, Kevin, MD MD [facility] Jenae Fuchs RN RN Blas Madera PA PA cp Botello, Elizabeth eb Lewis, Lynsay RN RN ll1 Corrections: (The following items were deleted from the chart) 02/20 10:30 10:25 PMHx: pacemake; iw iw 10:39 10:31 Chest Single View+RAD.RAD.BRZ ordered. EDMS EDMS 13:42 12:26 Telemetry/MedSurg (Inpatient) cp eb 13:42 12:26 cp eb 20:57 13:42 [facility] ER HOLD eb mw 20:57 13:42 ERHOLD- eb
[2021-02-20] MEDS ORDERED: TRAMADOL HCL 50 MG TAB ONE (15:45)
[2021-02-20] MEDS ORDERED: GABAPENTIN 100 MG CAP PO ONE (16:00)
[2021-02-20] MEDS ORDERED: PRAMIPEXOLE 1 MG TAB PO ONE (16:00)
[2021-02-20] MEDS ORDERED: RIVAROXABAN 20 MG TABLET PO SCH (17:00)
[2021-02-20] MEDS ORDERED: METOPROLOL TAR 25 MG TAB PO SCH (18:00)
[2021-02-20 18:05] VITALS: BMI 33.5
[2021-02-20] MEDS ORDERED: ACETAMINOPHEN 500 MG TAB PO PRN (18:10)
[2021-02-20] MEDS ORDERED: ALBUTEROL 2.5 MG/3 ML NEB SOL NEB PRN (18:10)
[2021-02-20] MEDS ORDERED: ONDANSETRON 4 MG/2 ML VIAL IV PRN (18:10)
[2021-02-20] MEDS ORDERED: IPRATROPIUM BROM 0.5MG/2.5ML NEB PRN (18:10)
[2021-02-20] MEDS: FUROSEMIDE 40 MG/4 ML VIAL IV SCH ×2 (18:10→18:35)
--- NOTE | 2021-02-20 18:36 | P.HP ---
Certification for Inpatient Patient admitted to: Observation With expected LOS: <2 Midnights Patient will require the following post-hospital care: None Practitioner: I am a practitioner with admitting privileges, knowledge of patient current condition, hospital course, and medical plan of care. Services: Services provided to patient in accordance with Admission requirements found in Title 42 Section 412.3 of the Code of Federal Regulations Patient History Date of Service: 02/20/21 Reason for admission: Congestive heart failure, edema History of Present Illness: This is a 80-year-old female patient that presented to the emergency room for increased dyspnea x1 week with increased edema. Patient has a history of diabetes, thyroid dysfunction, rheumatoid arthritis, atrial fibrillation, pedal edema and is on Lasix. PCP had recently increased her Lasix but now having shortness of breath with any sort of exertion. Patient was worked up in the e mergency room and found to have bilateral pleural effusions on chest x-ray with increased BNP of 2609. Troponin was negative. Other labs notable for sodium of 143, potassium 3.5, chloride 108, bicarb 33, BUN 16, creatinine 0.83, glucose 72. Patient's white cell count was 7.4, hemoglobin 11.4, hematocrit 35.2, platelet 229. Patient denies any recent change in her medications. Otherwise hemodynamically stable in the emergency room. Medicine consult at that time for admission for new onset suspected congestive heart failure with increased edema. Allergies Penicillins Allergy (Verified 01/23/21 22:36) Hives metformin Adverse Reaction (Verified 01/23/21 22:36) diarrhea Home medications list reviewed: Yes Home Medications: Cholecalciferol (Vitamin D3) [Vitamin D3] 2,000 unit PO SEECOM 12/10/16 Duloxetine HCl [Cymbalta] 60 mg PO DAILY 12/10/16 Folic Acid 0.8 mg PO DAILY 12/10/16 Furosemide [Lasix*] 40 mg PO DAILY 12/10/16 Levothyroxine [Synthroid*] 75 mcg PO [id number] 12/10/16 Liraglutide [Victoza 2-Kartik] 1.8 mg SQ DAILY 12/10/16 Magnesium Oxide [Mag 0X*] 250 mg PO DAILY 12/10/16 Potassium Gluconate [Potassium] 595 mg PO DAILY 12/10/16 lisinopriL [Prinivil*] 20 mg PO DAILY 12/10/16 Cyclosporine [Restasis] 1 drop EACH EYE BID 01/23/21 Furosemide [Lasix*] 20 mg PO SEECOM 01/23/21 Gabapentin 100 mg PO TID 01/23/21 Hydroxychloroquine [Plaquenil*] 2 tab PO DAILY 01/23/21 Insulin Degludec [Tresiba] 22 unit SQ DAILY 01/23/21 Pramipexole [Mirapex*] 0.5 mg PO DAILY 01/23/21 Pramipexole [Mirapex*] 1 mg PO BEDTIME 01/23/21 Pravastatin Sodium 80 mg PO BEDTIME 01/23/21 Tizanidine HCl 2 mg PO BID 01/23/21 Vit C/Yunier AC/Lut/Copper/Znox [Preservision Lutein Softgel] 1 each PO BID 01/23/21 Metoprolol Tartrate [Lopressor*] 25 mg PO BID 6AM 6PM #60 tab 01/24/21 Rivaroxaban [Xarelto] 20 mg PO DAILY #30 tablet 01/24/21 - Past Medical/Surgical History Has patient received pneumonia vaccine in the past: No Diabetic: Yes -: HTN -: HLD -: DM- IDDM -: Cellulitis -: pacemaker -: knee replacement -: hysterectomy -: appendectomy -: back surgery - Family History Sister -: Cancer Brother -: Diabetes - Social History Smoking Status: Current every day smoker Smoking therapy provided: Yes Patient receptive to therapy: Yes Alcohol use: No CD- Drugs: No Caffeine use: Yes Place of Residence: Home Review of Systems General: Unremarkable Eyes: Unremarkable ENT: Unremarkable Respiratory: SOB with Excertion Cardiovascular: Edema Gastrointestinal: Unremarkable Genitourinary: Unremarkable Musculoskeletal: Unremarkable Integumentary: Unremarkable Neurological: Unremarkable Lymphatics: Unremarkable Physical Examination - Vital Signs Temperature: 98.1 F Blood Pressure: 122/60 Pulse: 90 Respirations: 18 Pulse Ox (%): 97 - Physical Exam General: Alert, In no apparent distress, Oriented x3, Cooperative HEENT: PERRLA, Mucous membr. moist/pink, EOMI Neck: Supple, 2+ carotid pulse no bruit, JVD not distended Respiratory: Clear to auscultation bilaterally Cardiovascular: No gallops, No rubs, No murmurs, Edema, Irregular heart rate/rhythm Capillary refill: <2 Seconds Gastrointestinal: Normal bowel sounds, Soft and benign, Non-distended, No ascites, No tenderness, No masses, No rebound, No guarding Musculoskeletal: No clubbing, No contractures, No tenderness, No warmth, Erythema (Mild erythema bronzing noted to the lower extremities) Integumentary: No rashes, No breakdown, No significant lesion, No tenderness/swelling, No erythema, No warmth, No cyanosis Neurological: Normal speech, Normal strength at 5/5 x4 extr, Normal tone, Sensation intact, Cranial nerves 3-12 intact, Normal affect Lymphatics: No axilla or inguinal lymphadenopathy - Studies Laboratory Data (last 24 hrs) 02/20/21 10:48: PT 16.8 H, INR 1.46 02/20/21 10:48: WBC 7.40, Hgb 11.4 L, Hct 35.2 L, Plt Count 229 02/20/21 10:48: Sodium 143, Potassium 3.5, BUN 16, Creatinine 0.83, Glucose 72 L, Magnesium 2.0, Total Bilirubin 0.5, AST 42 H, ALT 58, Alkaline Phosphatase 211 H Assessment and Plan - Problems (Diagnosis) (1) Congestive heart disease Current Visit: Yes Status: Acute Qualifiers: Heart failure 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 Qualified Code(s): I50.814 - Right heart failure due to left heart failure (2) Dyspnea on exertion Current Visit: Yes Status: Acute (3) Afib Current Visit: Yes Status: Chronic Qualifiers: Atrial fibrillation type: unspecified Qualified Code(s): I48.91 - Unspecified atrial fibrillation (4) HTN (hypertension) Current Visit: Yes Status: Chronic Qualifiers: Hypertension type: primary hypertension Qualified Code(s): I10 - Essential (primary) hypertension (5) Hypothyroid Current Visit: No Status: Chronic Qualifiers: 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 Patient will be admitted to observation unit for suspected new onset congestive heart failure with edema 2. We will start patient on furosemide 40 twice daily to diuresis. 3. Will be completed and cardiology has been consulted 4. We will control A. fib and keep patient on Xarelto 5. Labs daily 6. Patient should be able to go home in the next 24 hours post diuresis and cardiology consult Discharge Plan: Home Plan to discharge in: 24 Hours - Advance Directives Does patient have a Living Will: No Does patient have a Durable POA for Healthcare: No - Code Status/Comfort Care Code Status Assessed: No Critical Care: No Time Spent Managing Pts Care (In Minutes): 70
[2021-02-20] MEDS ORDERED: FUROSEMIDE 40 MG/4 ML VIAL ONE (18:53)
[2021-02-20 19:13] LABS: Thyroid Stimulating Hormone 2.3 uIU/mL (0.360-3.740)
[2021-02-20 23:36] VITALS: O2SAT 96
[2021-02-21 05:24] LABS: Absolute Lymphocytes (CBC) 1.8 K/uL (0.7-4.9); Basophils % 0.9 % (0-1.3); Hematocrit 34.7 % (36.0-45.0); Lymphocytes % 24.3 % (15.3-44.8); MPV 7.8 fL (7.6-11.3); RBC Red Blood Cell Count 3.75 M/uL (3.86-4.86)
[2021-02-21 05:43] LABS: Potassium 3.5 mmol/L (3.5-5.1)
[2021-02-21] MEDS: FUROSEMIDE 40 MG/4 ML VIAL IV SCH (09:41)
[2021-02-21] MEDS ORDERED: HOME MED 1 EA UNK (Duloxetine Hcl [Cymbalta] 60 MG Capsule.Dr) PO SCH (10:09)
[2021-02-21] MEDS ORDERED: HOME MED 1 EA UNK (Cholecalciferol (Vitamin D3) [Vitamin D3] 2,000 UNIT Capsule) PO SCH (10:15)
[2021-02-21] MEDS ORDERED: METOPROLOL TAR 25 MG TAB PO SCH (11:00)
[2021-02-21] MEDS ORDERED: HYDROXYCHLOROQUINE 200MG TAB PO SCH (11:00)
[2021-02-21] MEDS ORDERED: MAGNESIUM OXIDE 400 MG TAB PO SCH (11:00)
[2021-02-21] MEDS ORDERED: lisinopriL 20 MG TAB PO SCH (11:00)
[2021-02-21] MEDS ORDERED: PRAMIPEXOLE 0.25 MG TAB PO SCH (11:00)
[2021-02-21] MEDS ORDERED: TIZANIDINE 4 MG TABLET PO SCH (12:00)
[2021-02-21] MEDS ORDERED: DULOXETINE 30 MG CAP PO SCH (12:00)
[2021-02-21] MEDS ORDERED: FOLIC ACID 1 MG TABLET PO SCH (12:00)
--- NOTE | 2021-02-21 13:13 | P.DS ---
Admission Date: 02/20/21 Discharge Date: 02/21/21 Disposition: ROUTINE DISCHARGE Discharge Condition: FAIR Reason for Admission: Congestive heart failure, edema - Problems (1) Acute on chronic diastolic (congestive) heart failure Status: Acute (2) Afib Status: Chronic Qualifiers: Atrial fibrillation type: unspecified Qualified Code(s): I48.91 - Unspecified atrial fibrillation (3) HTN (hypertension) Status: Chronic Qualifiers: Hypertension type: primary hypertension Qualified Code(s): I10 - Essential (primary) hypertension Brief History of Present Illness: 80-year-old female patient presented to the emergency room for increased dyspnea x1 week with increased edema. Patient has a history of diabetes, thyroid dysfunction, rheumatoid arthritis, atrial fibrillation, pedal edema and is on Lasix. PCP had recently increased her Lasix. In the ED, chest x-ray demonstrated small bilateral pleural effusions and increased interstitial opacities suggesting vascular congestion. BNP of 2609. Troponin was negative. Other labs notable for sodium of 143, potassium 3.5, chloride 108, bicarb 33, BUN 16, creatinine 0.83, glucose 72. Patient hospitalized for further management. Hospital Course: Patient placed under observation. Troponin trended negative. She was diuresed with IV Lasix. Her shortness of breath improved with treatment. Patient states she feels back to baseline. She ambulated without shortness of breath. Vital stable. Patient deemed clinically stable for discharge. Will continue her Lasix dose 40 mg daily. Follow up with her [facility] manager Dr. Jarquin within the next couple of weeks is recommended. Vital Signs/Physical Exam: Temp Pulse Resp BP Pulse Ox 98.0 F 110 H 17 127/67 97 02/21/21 08:00 02/21/21 08:00 02/21/21 08:00 02/21/21 11:21 02/21/21 08:00 General: Alert, In no apparent distress, Oriented x3 HEENT: Mucous membr. moist/pink Neck: Supple, JVD not distended Respiratory: Clear to auscultation bilaterally, Normal air movement Cardiovascular: No edema, Regular rate/rhythm, Normal S1 S2 Gastrointestinal: Soft and benign, Non-distended, No tenderness Musculoskeletal: No swelling Integumentary: No rashes Neurological: Normal strength at 5/5 x4 extr Laboratory Data at Discharge: WBC 7.30 K/uL (4.3-10.9) 02/21/21 04:48 Hgb 11.1 g/dL (12.0-15.0) L 02/21/21 04:48 Hct 34.7 % (36.0-45.0) L 02/21/21 04:48 Plt Count 221 K/uL (152-406) 02/21/21 04:48 PT 16.8 SECONDS (9.5-12.5) H 02/20/21 10:48 INR 1.46 02/20/21 10:48 Sodium 145 mmol/L (136-145) 02/21/21 04:48 Potassium 3.5 mmol/L (3.5-5.1) 02/21/21 04:48 BUN 16 mg/dL (7-18) 02/21/21 04:48 Creatinine 0.80 mg/dL (0.55-1.3) 02/21/21 04:48 Glucose 86 mg/dL (74-106) 02/21/21 04:48 Magnesium 2.0 mg/dL (1.8-2.4) 02/20/21 10:48 Total Bilirubin 0.5 mg/dL (0.2-1.0) 02/20/21 10:48 AST 42 U/L (15-37) H 02/20/21 10:48 ALT 58 U/L (12-78) 02/20/21 10:48 Alkaline Phosphatase 211 U/L (45-117) H 02/20/21 10:48 Troponin I < 0.02 ng/mL (0.0-0.045) 02/20/21 21:58 Home Medications: Cholecalciferol (Vitamin D3) [Vitamin D3] 2,000 unit PO SEECOM 12/10/16 Duloxetine HCl [Cymbalta] 60 mg PO DAILY 12/10/16 Folic Acid 0.8 mg PO DAILY 12/10/16 Furosemide [Lasix*] 40 mg PO DAILY 12/10/16 Levothyroxine [Synthroid*] 75 mcg PO [id number] 12/10/16 Liraglutide [Victoza 2-Kartik] 1.8 mg SQ DAILY 12/10/16 Magnesium Oxide [Mag 0X*] 250 mg PO DAILY 12/10/16 Potassium Gluconate [Potassium] 595 mg PO DAILY 12/10/16 lisinopriL [Prinivil*] 20 mg PO DAILY 12/10/16 Cyclosporine [Restasis] 1 drop EACH EYE BID 01/23/21 Gabapentin 100 mg PO TID 01/23/21 Hydroxychloroquine [Plaquenil*] 2 tab PO DAILY 01/23/21 Insulin Degludec [Tresiba] 22 unit SQ DAILY 01/23/21 Pramipexole [Mirapex*] 0.5 mg PO DAILY 01/23/21 Pramipexole [Mirapex*] 1 mg PO BEDTIME 01/23/21 Pravastatin Sodium 80 mg PO BEDTIME 01/23/21 Tizanidine HCl 2 mg PO BID 01/23/21 Vit C/Yunier AC/Lut/Copper/Znox [Preservision Lutein Softgel] 1 each PO BID 01/23/21 Metoprolol Tartrate [Lopressor*] 25 mg PO BID 6AM 6PM #60 tab 01/24/21 Rivaroxaban [Xarelto] 20 mg PO DAILY #30 tablet 01/24/21 Diet: ADA Activity: Ad peggy Followup: Espinoza Mcgee MD [ACTIVE - CAN ADMIT] - TSERING CAGLE [Primary Care Provider] -
[2021-02-21] MEDS ORDERED: GABAPENTIN 100 MG CAP PO SCH (14:00)
[2021-02-21 14:07] VITALS: BP 135/70; TEMP 98.1
--- NOTE | 2021-02-21 15:16 | CON ---
Date of Consultation: 02/21/2021 Reason For Consultation: Heart failure. History Of Present Illness: An 80-year-old female presented with lower extremity edema with only shreya rtness of breath. Denies having any chest pain. No nausea or vomiting. No diarrhea. Diagnosed wit h acute heart failure exacerbation, started on Lasix and feels much better. Past Medical History: Hypertension, diabetes, congestive heart failure, and dyslipidemia. Medications: Refer to reconciliation sheet for detailed list. Allergies: PENICILLIN AND METFORMIN. Past Surgical History: Hysterectomy, appendectomy, and back surgery. Family History: No premature coronary artery disease or cancer. Social History: Does not use any drugs, but smokes every day and does not drink alcohol. Review of Systems: All systems reviewed and are negative except as mentioned in HPI. Physical Examination: Vital Signs: Temperature is 98.1, pulse is 117, breathing 18, blood pressure 135/70, and saturating 98%. General: Pleasant elderly female, in no apparent distress. Head and Neck: Pupils are equal and reactive to light. Intact eye movements. No JVD. No cervical lymphadenopathy. Neck is supple. Thyroid is not enlarged. Lungs: Clear to auscultation bilaterally. No rhonchi, rales, or crackles. No accessory muscle use. Heart: Regular rate and rhythm. No extra sounds. Abdomen: Soft, nontender. Bowel sounds positive. No organomegaly. No rigidity or rebound. Extremities: A 3+ pitting edema. No clubbing or cyanosis. Intact pulses. Skin: No rashes. Neurologic: Alert, awake, and oriented x3. No acute focal deficits appreciated. Investigations: Troponin less than 0.02. NT-proBNP was 2182. Creatinine 0.8. Assessment And Recommendations: [id number] congestive heart failure exacerbation. EF is borde rline. I recommend further IV diuresis. The patient is still fluid overloaded. Carefully monitor B UN and creatinine, and she would definitely benefit from further IV diuresis prior to discharge and t he patient will need ischemic workup with stress test, which can be arranged for as an outpatient sin ce her troponins are negative. Thank you for the consult. SR/MODL Voice ID: [id number] Report ID: [id number]
[2021-02-21] MEDS ORDERED: RIVAROXABAN 20 MG TABLET PO SCH (17:00)
[2021-02-21] MEDS ORDERED: [UNRECOGNIZED DRUG - OTHER] PO SCH (21:00)
[2021-02-21] MEDS ORDERED: COPPER PO SCH (21:00)
[2021-02-21] MEDS ORDERED: HOME MED 1 EA UNK (Pravastatin Sodium [Pravastatin Sodium] 80 MG Tablet) PO SCH (21:00)
[2021-02-21] MEDS ORDERED: HOME MED 1 EA UNK (Cyclosporine [Restasis] Droperette) OPTH SCH (21:00)
[2021-02-21] MEDS ORDERED: LUT PO SCH (21:00)
[2021-02-21] MEDS ORDERED: VIT C PO SCH (21:00)
[2021-02-21] MEDS ORDERED: ZNOX PO SCH (21:00)
[2021-02-21] MEDS ORDERED: PRAMIPEXOLE 1 MG TAB PO SCH (21:00)
[2021-02-21] MEDS ORDERED: VITE AC PO SCH (21:00)
[2021-02-21] MEDS ORDERED: HOME MED 1 EA UNK (Tizanidine Hcl [Tizanidine Hcl] 2 MG Tablet) PO SCH (21:00)
[2021-02-21] MEDS ORDERED: ATORVASTATIN 10 MG TAB PO SCH (21:00)
[2021-02-22] MEDS ORDERED: LEVOTHYROXINE SOD 0.075 MG TAB PO SCH (06:00)
[2021-02-22] MEDS ORDERED: HOME MED 1 EA UNK (Insulin Degludec [Tresiba] 100 UNIT/ML Vial) SQ SCH (09:00)
[2021-02-22] MEDS ORDERED: HOME MED 1 EA UNK (Folic Acid [Folic Acid] 0.8 MG Capsule) PO SCH (09:00)
[2021-02-22] MEDS ORDERED: HOME MED 1 EA UNK (Potassium Gluconate [Potassium] 600 MG Tablet) PO SCH (09:00)
--- NOTE | 2021-02-23 07:59 | ECHO ---
HEIGHT: 5 ft 3 in WEIGHT: 189 lb 0 oz DATE OF STUDY: 02/20/[address]: Mac Cleaning 2-DIMENSIONAL: YES M.MODE: YES DOPPLER: YES COLOR FLOW: YES TDS: PORTABLE: DEFINITY: BUBBLE STUDY: DIAGNOSIS: NEW ONSET HEART FAILURE CARDIAC HISTORY: CATHERIZATION: NO SURGERY: NO PROSTHETIC VALVE: NO PACEMAKER: YES MEASUREMENTS (cm) DIASTOLIC (NORMALS) SYSTOLIC (NORMALS) IVSd 1.1 (0.6-1.2) LA Diam 2.8 (1.9-4.0) LVEF 45-50% LVIDd 3.6 (3.5-5.7) LVIDs 2.9 (2.0-3.5) %FS 17% LVPWd 1.1 (0.6-1.2) Ao Diam 2.8 (2.0-3.7) 2 DIMENSIONAL ASSESSMENT: RIGHT ATRIUM: ENLARGED LEFT ATRIUM: NORMAL RIGHT VENTRICLE: PACEMAKER LEAD LEFT VENTRICLE: MILDLY DEPRESSED TRICUSPID VALVE: MODERATE TRICUSPID REGURGITATION MITRAL VALVE: MILD MITRAL REGURGITATION PULMONIC VALVE: AORTIC VALVE: NORMAL PERICARDIAL EFFUSION: AORTIC ROOT: NORMAL LEFT VENTRICULAR WALL MOTION: MILD GLOBAL HYPOKINESIS DOPPLER/COLOR FLOW: SEE BELOW COMMENTS: MILDLY DEPRESSED LEFT VENTRICULAR EJECTION FRACTION 45-50% WITH MILD GLOBAL HYPOKINESIS. MODERATE TO SEVERE TRICUSPID REGURGITATION. MILD MITRAL REGURGITATION. TECHNOLOGIST: [employer]
[2021-02-23] MEDS ORDERED: VITAMIN D 1000 UNIT TAB PO SCH (09:00)
== END 2021-02-21 16:13 | disposition home or self-care (01) ==
LOC: ER 10:09 → ERHOLD 13:52 → 2ND 22:11
PROVIDERS: ADMIT Internal Medicine; ATTEND Internal Medicine
DX: I11.0 Hypertensive heart disease with heart failure (principal); I50.33 Acute on chronic diastolic (congestive) heart failure; I48.91 Unspecified atrial fibrillation; E11.9 Type 2 diabetes mellitus without complications; M06.9 Rheumatoid arthritis, unspecified; E78.5 Hyperlipidemia, unspecified; E03.9 Hypothyroidism, unspecified; F17.210 Nicotine dependence, cigarettes, uncomplicated; Z71.6 Tobacco abuse counseling; Z20.822 Contact with and (suspected) exposure to COVID-19; Z95.0 Presence of cardiac pacemaker; Z79.01 Long term (current) use of anticoagulants; Z96.659 Presence of unspecified artificial knee joint; Z88.0 Allergy status to penicillin; Z88.8 Allergy status to other drugs, medicaments and biological substances; Z90.710 Acquired absence of both cervix and uterus; Z83.3 Family history of diabetes mellitus; Z80.9 Family history of malignant neoplasm, unspecified
CPT/HCPCS: 93306; 85025 ×2; 80048 ×2; 36415; 83735; 85610; 80076; 84443; 84484 ×3; 84439; 83880 ×2; 99285; U0003; J1940 ×2; 93005; G0378